=== PATIENT | female | born 1940 | race Caucasian/White ===

== ENCOUNTER 2022-11-01 12:00 | Emergency (ER) | payer OTHER, MEDICARE ==
[~2022-11-01] VITALS: Ht 165.1 cm; Wt 88.0 kg
[2022-11-01 12:28] VITALS: BP_SYST 186
--- NOTE | 2022-11-01 12:28 | NUR ---
RECEIVED PT FROM [facility]. PT BIBS FOR C/O DIZZINESS AND DULL C/P PAIN 09/12. PT HAD GONE TO AN URGENT CARE TO INVESITGATE AND THEN WAS SENT HERE DUE TO AN ABNORMAL EKG. PRESENT EKG OBTAINED AT BEDSIDE SHOWS NSR. PT DENIES PAIN AT THIS TIME. SIDERAILS UP X2, PT PLACED ON MONITOR, SIDERAILS UP X2.
--- NOTE | 2022-11-01 12:40 | NUR ---
DR. DONAHUE AT BEDSIDE TO ASSESS PT.
--- NOTE | 2022-11-01 12:50 | NUR ---
BLOOD OBTAINED AND TAKEN TO LAB.
[2022-11-01 13:38] LABS: BASOPHILS # (AUTO) 0.1 K/uL (0.0-0.2); BASOPHILS % (AUTO) 0.8 % (0.0-2.0); EOSINOPHILS # (AUTO) 0.4 K/uL (0.0-0.4); HEMATOCRIT 35.1 % (36-48); HEMOGLOBIN 11.5 g/dL (12.0-16.0); LYMPHOCYTES # (AUTO) 1.6 K/uL (1.0-5.5); LYMPHOCYTES % (AUTO) 24.7 % (20.5-51.5); MEAN CORPUSCULAR HEMOGLOBIN 28 pg (27-31); MEAN CORPUSCULAR HGB CONC 33 % (32-36); MEAN CORPUSCULAR VOLUME 86 fL (79.0-98.0); MONOCYTES # (AUTO) 0.4 K/uL (0.0-1.0); NEUTROPHILS # (AUTO) 3.9 K/uL (1.8-7.7); NEUTROPHILS % (AUTO) 62.5 % (40.0-70.0); PLATELET COUNT (AUTO) 233 K/uL (130-430); RED CELL DISTRIBUTION WIDTH 15.9 % (9.0-15.0); WHITE BLOOD COUNT (AUTO) 6.3 K/uL (4.8-10.8)
[2022-11-01 13:46] LABS: ANION GAP 9 (5-15); CALCIUM 8.9 mg/dL (8.4-11.0); CHLORIDE 107 mmol/L (98-107); CREATININE 0.84 mg/dL (0.55-1.30); GLUCOSE 222 mg/dL (70-99); UREA NITROGEN, BLOOD 19 mg/dL (8-21)
[2022-11-01 13:53] LABS: ALANINE AMINOTRANSFERASE 28 U/L (12-78); ALBUMIN 3.5 g/dL (3.4-4.8); ASPARTATE AMINOTRANSFERASE 20 U/L (10-37); TOTAL BILIRUBIN 0.5 mg/dL (0.0-1.0)
[2022-11-01 14:06] LABS: PROTHROMBIN TIME 10.4 SECS (9.5-12.5)
--- NOTE | 2022-11-01 15:10 | NUR ---
REPORTED TO DR. GAN AT PT'S HR IN THE 50S AND DIPPED DOWN TO 48BPM, PT HAD SOB WHEN WALKING TO THE BATHROOM. HE STATED HE WILL ORDER A D-DIMER. LAB MADE AWARE.
--- NOTE | 2022-11-01 16:30 | NUR ---
DR. GAN AT BEDSIDE TO DISCUSS POC.
--- NOTE | 2022-11-01 18:03 | NUR ---
Patient given written and verbal discharge instructions and verbalizes understanding. ER MD discussed with patient the results and treatment provided. Patient in stable condition. ID arm band removed. Patient educated on pain management and to follow up with PMD. Pain Scale 0/10. Opportunity for questions provided and answered. Medication side effect fact sheet provided.
[2022-11-01 18:08] VITALS: BP_SYST 146
== END 2022-11-01 18:05 | disposition home or self-care (01) ==
LOC: SED 12:00
DX: R00.1 Bradycardia, unspecified (principal); E03.9 Hypothyroidism, unspecified; R42 Dizziness and giddiness; R06.02 Shortness of breath; E11.9 Type 2 diabetes mellitus without complications; I10 Essential (primary) hypertension; Z79.899 Other long term (current) drug therapy
CPT/HCPCS: 36415; 71045; 80053; 83605; 83880; 84484; 85025; 85379; 85610-TC; 85730-TC; 93005; 99285